=== PATIENT | male | born 1985 | race African-American/Black ===

== ENCOUNTER 2018-11-20 15:04 | Inpatient (IN) ==
[2018-11-20] MEDS ORDERED: INFLUENZA VIRUS VACCINE 0.5 ML SYRINGE IM ONE (15:47)
[2018-11-20] MEDS ORDERED: LORazepam 2 MG/1 ML VIAL IV PRN (16:05)
[2018-11-20] MEDS ORDERED: HydrOXYzine PAMOATE 25 MG CAPSULE PO PRN (16:05)
[2018-11-20] MEDS ORDERED: THIAMINE INJ 100 MG, FOLIC ACID INJ 1 MG, MULTIVITAMIN INJ 10 ML in SODIUM CHLORIDE 0.9... IV ONE (16:05)
[2018-11-20 17:05] LABS: Basophils % 0.3 % (0.0-0.8); Eosinophils # 0.1 10*3/uL (0.0-0.87); Eosinophils % 4.3 % (0.00-10.9); Hematocrit 40.6 VOL% (42.0-52.0); Immature Granulocytes % 0.3 %; Immature Granulocytes Absolute 0.01 #; Lymphocytes # 1.2 10*3/uL (1.4-4.0); Lymphocytes % 36.8 % (21.2-54.2); Mean Corpuscular HGB Conc 34.5 GM/DL (32-36); Mean Platelet Volume 9.7 FL (9.6-12.0); Monocytes % 13.1 % (1.7-12.7); Neutrophils % 45.2 % (38.7-73.9); Platelet Count 139 T/CUMM (130-400); Red Blood Count 4.23 MC/CUMM (3.8-5.5); Red Cell Distribution Width 13.8 % (9.3-17.3); White Blood Count 3.3 T/CUMM (4-12)
[2018-11-20] MEDS: NICOTINE 21 MG/24 HR PATCH TRANSDERM SCH (17:25)
[2018-11-20] MEDS: chlordiazePOXIDE 25 MG CAPSULE PO SCH ×2 (17:25→22:19)
[2018-11-20 17:39] LABS: Albumin 3.8 G/DL (3.4-5.0); Bilirubin,Total 0.6 MG/DL (0.2-1.0); Calcium 9.2 MG/DL (8.5-10.1); Osmolality,Calculated 272.7 MOS/KG (273-304); Thyroid Stimulating Hormone 2.38 uIU/ml (0.358-3.74); Total Protein 8.4 G/DL (6.4-8.3)
[2018-11-20 20:43] LABS: Apearance,Urine Slightly Hazy (Clear); Bacteria,Urine Moderate /HPF (Few); Bilirubin,Urine Negative (Negative); Blood, Urine Small mg/dL (Negative); Glucose,Urine (UA) Negative (Negative); Ketones,Urine 5 mg/dL (Negative); Mucus,Urine Occasional /LPF (Occasional); Nitrite,Urine Positive (Negative); Protein,Urine 30 MG/DL; RBC,Urine 9 /HPF (0-4); Urine Color Yellow (Yellow); Urine Urobilinogen < 2.0 EU/DL (0.2-1.0); WBC,Urine 40 /HPF (0-6)
[2018-11-20 20:55] LABS: Barbiturates Screen,Urine Negative (Negative); Benzodiazepines Screen,Urine Negative (Negative); Cannabinoid Screen,Urine Positive (Negative); Opiate Screen,Urine Negative (Negative); Phencyclidine Screen,Urine Negative (Negative)
[2018-11-20] MEDS: ENOXAPARIN 40 MG/0.4 ML SYRINGE SUBCUT SCH (22:21)
[2018-11-21] MEDS: DICYCLOMINE 10 MG CAPSULE PO PRN ×2 (01:37→15:06)
[2018-11-21] MEDS: chlordiazePOXIDE 25 MG CAPSULE PO SCH ×3 (04:16→17:24)
[2018-11-21] MEDS: cefTRIAXone 1,000 MG in SYRINGE 1 EACH IV SCH (09:43)
[2018-11-21] MEDS: NICOTINE 21 MG/24 HR PATCH TRANSDERM SCH (09:43)
[2018-11-21] MEDS ORDERED: AZITHROMYCIN 250 MG TABLET PO ONE (10:35)
[2018-11-21] MEDS ORDERED: KETOROLAC 30 MG/1 ML VIAL IV ONE (13:56)
[2018-11-21] MEDS ORDERED: ACETAMINOPHEN 500 MG TABLET PO ONE (13:56)
[2018-11-21 15:31] LABS: Hepatitis C Virus Ab Quant 0.05 Index; Hepatitis C Virus Ab Result Negative (Negative)
[2018-11-21 15:32] LABS: Hepatitis B Surface Ag Quant 0.11 Index; Hepatitis B Surface Ag Result Negative (Negative)
[2018-11-21] MEDS: ENOXAPARIN 40 MG/0.4 ML SYRINGE SUBCUT SCH (20:23)
[2018-11-22] MEDS: chlordiazePOXIDE 25 MG CAPSULE PO SCH ×3 (00:03→15:35)
[2018-11-22] MEDS: DICYCLOMINE 10 MG CAPSULE PO PRN (00:07)
[2018-11-22] MEDS: NICOTINE 21 MG/24 HR PATCH TRANSDERM SCH (08:06)
[2018-11-22] MEDS: cefTRIAXone 1,000 MG in SYRINGE 1 EACH IV SCH (08:06)
[2018-11-22] MEDS ORDERED: MEROPENEM 1,000 MG in SODIUM CHLORIDE 0.9% 100 ML IV SCH (16:00)
[2018-11-22] MEDS: ERTAPENEM 1,000 MG in SODIUM CHLORIDE 0.9% 100 ML IV SCH (17:02)
[2018-11-22] MEDS: ENOXAPARIN 40 MG/0.4 ML SYRINGE SUBCUT SCH (20:52)
[2018-11-23] MEDS: chlordiazePOXIDE 25 MG CAPSULE PO SCH ×2 (00:30→09:01)
[2018-11-23] MEDS: DICYCLOMINE 10 MG CAPSULE PO PRN ×2 (04:25→16:12)
[2018-11-23] MEDS: NICOTINE 21 MG/24 HR PATCH TRANSDERM SCH (09:02)
[2018-11-23] MEDS: ERTAPENEM 1,000 MG in SODIUM CHLORIDE 0.9% 100 ML IV SCH (16:06)
[2018-11-23] MEDS: METHOCARBAMOL 750 MG TABLET PO PRN (16:13)
[2018-11-23] MEDS: ENOXAPARIN 40 MG/0.4 ML SYRINGE SUBCUT SCH (21:37)
[2018-11-24] MEDS: NICOTINE 21 MG/24 HR PATCH TRANSDERM SCH (09:31)
[2018-11-24] MEDS: ERTAPENEM 1,000 MG in SODIUM CHLORIDE 0.9% 100 ML IV SCH (15:12)
[2018-11-24] MEDS: DICYCLOMINE 10 MG CAPSULE PO PRN (15:12)
[2018-11-24] MEDS: METHOCARBAMOL 750 MG TABLET PO PRN (15:16)
[2018-11-24] MEDS: ENOXAPARIN 40 MG/0.4 ML SYRINGE SUBCUT SCH (20:37)
[2018-11-25] MEDS: NICOTINE 21 MG/24 HR PATCH TRANSDERM SCH (09:28)
[2018-11-25] MEDS: METHOCARBAMOL 750 MG TABLET PO PRN (10:18)
[2018-11-25] MEDS: ERTAPENEM 1,000 MG in SODIUM CHLORIDE 0.9% 100 ML IV SCH (15:12)
[2018-11-25] MEDS: ENOXAPARIN 40 MG/0.4 ML SYRINGE SUBCUT SCH (20:46)
[2018-11-26 05:39] LABS: Basophils % 0.9 % (0.0-0.8); Eosinophils # 0.2 10*3/uL (0.0-0.87); Eosinophils % 6.6 % (0.00-10.9); Hematocrit 43.4 VOL% (42.0-52.0); Hemoglobin 14.3 GM/DL (14.0-18.0); Immature Granulocytes % 0.3 %; Immature Granulocytes Absolute 0.01 #; Lymphocytes # 1.1 10*3/uL (1.4-4.0); Lymphocytes % 31.5 % (21.2-54.2); Mean Corpuscular HGB Conc 32.9 GM/DL (32-36); Mean Corpuscular Volume 100.2 FL (87-102); Mean Platelet Volume 9.5 FL (9.6-12.0); Monocytes % 13.2 % (1.7-12.7); Neutrophils % 47.5 % (38.7-73.9); Platelet Count 140 T/CUMM (130-400); Red Blood Count 4.33 MC/CUMM (3.8-5.5); Red Cell Distribution Width 14.1 % (9.3-17.3); White Blood Count 3.5 T/CUMM (4-12)
[2018-11-26 06:08] LABS: Hypochromasia 1+
[2018-11-26 06:09] LABS: Target Cells Slight
[2018-11-26 06:10] LABS: Microcytosis Slight; Ovalocytes Slight; Platelet Estimate Adequate; Tear Drop Cells Slight
[2018-11-26] MEDS: NICOTINE 21 MG/24 HR PATCH TRANSDERM SCH (08:27)
[2018-11-26] MEDS: METHOCARBAMOL 750 MG TABLET PO PRN (17:06)
[2018-11-26] MEDS: ERTAPENEM 1,000 MG in SODIUM CHLORIDE 0.9% 100 ML IV SCH (17:06)
[2018-11-26] MEDS: ENOXAPARIN 40 MG/0.4 ML SYRINGE SUBCUT SCH (20:27)
[2018-11-27] MEDS: NICOTINE 21 MG/24 HR PATCH TRANSDERM SCH (09:06)
[2018-11-27 10:24] VITALS: BP 130/93
== END 2018-11-27 12:54 | disposition left against medical advice (07) | DRG 770 ==
LOC: N.4E 15:11 → SUATTDRO 15:11
PROVIDERS: ADMIT Internal Medicine; ATTEND Internal Medicine